=== PATIENT | male | born 1990 | race Caucasian/White ===

== ENCOUNTER 2017-02-17 01:43 | Emergency (ER) | payer BC ==
[~2017-02-17] VITALS: Ht 188 cm; Wt 97.3 kg
[2017-02-17 01:46] VITALS: BP 154/96
[2017-02-17] MEDS ORDERED: DIPHENHYDRAMINE 25 MG CAPSULE ONE (02:10)
[2017-02-17] MEDS ORDERED: EPINEPHRINE 1 MG/ML, 1ML ONE (02:10)
[2017-02-17] MEDS ORDERED: FAMOTIDINE 20 MG TABLET ONE (02:10)
[2017-02-17] MEDS ORDERED: DIPHENHYDRAMINE 25 MG CAPSULE PO ONE (02:30)
[2017-02-17] MEDS ORDERED: EPINEPHRINE 1 MG/ML, 1ML SQ ONE (02:30)
[2017-02-17] MEDS ORDERED: FAMOTIDINE 20 MG TABLET PO ONE (02:30)
== END 2017-02-17 03:18 | disposition home or self-care (01) ==
LOC: ED 03:15
DX: L50.9 Urticaria, unspecified (principal)
CPT/HCPCS: 96372; 99283; J0171; Q0163